=== PATIENT | male | born 1945 | race Caucasian/White ===

== ENCOUNTER 2018-03-05 09:52 | Outpatient (CLI) | payer MEDICARE, SELFPAY ==
--- NOTE | 2018-03-05 09:55 | DI.RAD_ITS ---
SYMPTOM/DIAGNOSIS: PAIN LEFT KNEE: Two views. Comparison is made with 07/19/15. There are again seen post surgical changes of a left total knee replacement. No evidence of hardware failure is seen. The bones are intact. Vascular calcifications are present. The soft tissues are otherwise unremarkable. IMPRESSION: Stable left TKR.
== END 2018-03-05 10:12 ==
PROVIDERS: PCP Specialist/Technologist Athletic Trainer; Referring Provider Specialist/Technologist Athletic Trainer; Visit Provider Orthopaedic Surgery
DX: M25.562 Pain in left knee (principal); Z96.652 Presence of left artificial knee joint; I10 Essential (primary) hypertension
CPT/HCPCS: 99212; 99214; 73560

== ENCOUNTER 2018-10-29 09:13 | Outpatient (REF) | payer MEDICARE, SELFPAY ==
[2018-10-29 13:31] LABS: Mean Corp. HGB Concentration 34.9 g/dL (32.0-36.0); Mean Corpuscular Hemoglobin 35.5 pg (27.0-33.0); Mean Corpuscular Volume 101.9 fL (80-95); Platelet Count 174 x1000/uL (130-400); RBC 4.22 m/cumm (4.50-6.00); RBC Distribution Width 13.3 % (11.8-14.1)
[2018-10-29 13:58] LABS: ALT 91 U/L (12-78); AST 45 U/L (15-37); Albumin 3.8 g/dL (3.4-5.0); Alkaline Phosphatase 63 U/L (46-116); Anion Gap 13.3 mmol/L (3-11); BUN 22 mg/dL (7-18); Bilirubin, Total 0.7 mg/dL (0.2-1.0); CO2 22.7 mmol/L (21.0-32.0); CREATININE 1.37 mg/dL (0.70-1.30); Calcium 8.9 mg/dL (8.5-10.1); Calculated LDL 90; Chloride 104 mmol/L (98-107); Cholesterol 161 mg/dL (50-200); Estimated GFR 51.22 (mL/min/1.73m2); Glucose 132 mg/dL (70-100); HDL Cholesterol 30 mg/dL (40-60); Magnesium 1.9 mg/dL (1.8-2.4); Potassium 4.1 mmol/L (3.5-5.1); Sodium 140 mmol/L (136-145); Total Protein 6.8 g/dL (6.4-8.2); Triglyceride 207 mg/dL (30-150)
== END 2018-10-29 09:33 ==
LOC: NCHCN 09:13
PROVIDERS: PCP Specialist/Technologist Athletic Trainer; Visit Provider Specialist/Technologist Athletic Trainer
DX: I10 Essential (primary) hypertension (principal); E78.5 Hyperlipidemia, unspecified; R68.89 Other general symptoms and signs; R74.8 Abnormal levels of other serum enzymes; F10.99 Alcohol use, unspecified with unspecified alcohol-induced disorder
CPT/HCPCS: 80053; 80061; 83721; 85027; 83735

== ENCOUNTER 2019-03-19 15:00 | Outpatient (REF) | payer MEDICARE, SELFPAY ==
[2019-03-19 22:32] LABS: Hemoglobin A1C 5.3 % (4.5-6.2)
[2019-03-19 22:47] LABS: ALT 31 U/L (16-63); AST 16 U/L (15-37); Albumin 3.7 g/dL (3.4-5.0); Alkaline Phosphatase 66 U/L (46-116); Anion Gap 10.1 mmol/L (3-11); BUN 13 mg/dL (7-18); Bilirubin, Total 0.3 mg/dL (0.2-1.0); C-Reactive Protein 0.73 mg/dL (0.0-0.3); CO2 22.9 mmol/L (21.0-32.0); CREATININE 1.12 mg/dL (0.70-1.30); Calcium 8.7 mg/dL (8.5-10.1); Chloride 107 mmol/L (98-107); Glucose 111 mg/dL (70-100); Sodium 140 mmol/L (136-145); Total Protein 6.3 g/dL (6.4-8.2)
[2019-03-19 23:09] LABS: ESR 12 mm/hr (1-20)
== END 2019-03-19 15:20 ==
LOC: NCHCN 15:00
PROVIDERS: PCP Specialist/Technologist Athletic Trainer; Visit Provider Specialist/Technologist Athletic Trainer
DX: R73.9 Hyperglycemia, unspecified (principal); R74.8 Abnormal levels of other serum enzymes; K21.9 Gastro-esophageal reflux disease without esophagitis
CPT/HCPCS: 80053; 85652; 83036; 86140